=== PATIENT | female | born 1940 | race Caucasian/White ===

== ENCOUNTER 2024-08-06 22:35 | Emergency (ER) | payer MEDICARE, OTHER ==
[2024-08-06 23:06] LABS: BASOPHILS ABSOLUTE AUTO 0.05 K/uL (0.00-0.20); BASOPHILS PERCENT AUTO 0.5 % (0.0-2.0); EOSINOPHILS ABSOLUTE AUTO 0.08 K/uL (0.00-0.50); EOSINOPHILS PERCENT AUTO 0.9 % (0.0-5.0); HEMATOCRIT 29.1 % (34.0-46.0); HEMOGLOBIN 9.1 g/dL (11.7-15.5); IMMATURE GRAN ABSOLUTE AUTO 0.02 10^3/uL (0.00-0.04); IMMATURE GRAN PERCENT AUTO 0.2 % (0.0-0.4); LYMPHOCYTES ABSOLUTE AUTO 0.79 K/uL (0.50-3.50); LYMPHOCYTES PERCENT AUTO 8.7 % (10.0-50.0); MEAN CORPUSCULAR HEMOGLOBIN 27.5 pg (28.2-33.3); MEAN CORPUSCULAR HGB CONC 31.3 g/dL (31.7-36.0); MEAN CORPUSCULAR VOLUME 87.9 fL (84.0-98.0); MONOCYTES ABSOLUTE AUTO 0.55 K/uL (0.00-1.00); NEUTROPHILS ABSOLUTE AUTO 7.61 K/uL (1.40-7.00); NEUTROPHILS PERCENT AUTO 83.7 % (45.0-80.0); PLATELET COUNT,PLT 299 K/uL (150-350); RED BLOOD CELL COUNT 3.31 M/uL (3.77-5.09); RED CELL DISTRIBUTION WIDTH 15.9 % (11.2-14.1); WHITE BLOOD CELL COUNT,WBC 9.1 K/uL (4.0-10.2)
[2024-08-06 23:20] LABS: INR 2.8 (0.9-1.1); PROTHROMBIN TIME 26.2 SEC (9.0-11.1)
[2024-08-06] MEDS: Sodium Chloride 0.9% 1,000 ML IV ONE (23:20)
[2024-08-06 23:23] LABS: ALANINE AMINOTRANSFERASE,ALT 21 U/L (12-78); ALBUMIN 2.8 g/dL (3.4-5.0); ALKALINE PHOSPHATASE 178 IU/L (46-116); ASPARTATE AMNIOTRANSFERASE,AST 21 U/L (15-37); BILIRUBIN TOTAL 0.5 mg/dL (0.2-1.0); BLOOD UREA NITROGEN,BUN 46 mg/dL (7-18); CALCIUM 8.8 mg/dL (8.5-10.1); CARBON DIOXIDE,CO2 27.6 mmol/L (21.0-32.0); CHLORIDE,CL 108 mmol/L (98-107); CREATININE 1.24 mg/dL (0.51-1.17); GLUCOSE RANDOM 123 mg/dL (70-99); MAGNESIUM 1.8 mg/dL (1.8-2.4); POTASSIUM,K 4.6 mmol/L (3.5-5.1); PROTEIN TOTAL,TP 5.7 g/dL (6.4-8.2); SODIUM,NA 142 mmol/L (136-145)
[2024-08-06 23:24] LABS: ESTIMATED GFR 43 mL/min (>=60)
[2024-08-06] MEDS: Pantoprazole 40 MG Vial IVPUSH ONE (23:31)
[2024-08-07] MEDS ORDERED: Sodium Chloride 0.9% 10 ML Syringe FLUSH PRN (00:26)
[2024-08-07] MEDS: Factor IX Complex Human 1,000 UNIT VIAL IVPUSH ONE (01:07)
[2024-08-07] MEDS: Lactated Ringers 1,000 ML IV ONE (01:20)
[2024-08-07] MEDS: Factor IX Complex Human 500 UNIT VIAL IVPUSH ONE (01:27)
[2024-08-07] MEDS: HUM PROTHROMBIN CPLX(PCC)4FACT 2,000 UNIT ONE (01:27)
== END 2024-08-07 01:28 ==
LOC: LL.ED 22:35
DX: K92.2 Gastrointestinal hemorrhage, unspecified (principal); I13.0 Hypertensive heart and chronic kidney disease with heart failure and stage 1 through stage 4 chronic kidney disease, or unspecified chronic kidney disease; I50.20 Unspecified systolic (congestive) heart failure; N18.31 Chronic kidney disease, stage 3a; I48.91 Unspecified atrial fibrillation; E78.00 Pure hypercholesterolemia, unspecified; Z79.01 Long term (current) use of anticoagulants; Z79.899 Other long term (current) drug therapy; Z79.82 Long term (current) use of aspirin
CPT/HCPCS: 36415; 80053; 83605; 83735; 85025; 85610; 96361; 96374; 96375; 99284; 99285-25; J2470; J7030; J7120; J7168